=== PATIENT | female | born 1955 | race Caucasian/White ===

== ENCOUNTER 2017-01-15 13:29 | Emergency (ER) | payer MEDICARE, MEDICAID ==
--- NOTE | 2017-01-15 14:16 | ER Document Report ---
ED General - General Chief Complaint: Leg Pain Stated Complaint: LEFT LEG PAIN Time Seen by Provider: 01/15/17 14:16 Mode of Arrival: Ambulatory Information source: Patient Notes: 61-year-old female history of factor V Leiden deficiency who is on the blood thinner that she is unsure of presents with complaints of left calf and thigh pain. Patient notes symptoms have been ongoing for 4 days denies any fevers or chills denies any nausea vomiting shortness of breath Patient notes history of 2 pulmonary emboli TRAVEL OUTSIDE OF THE [place] IN LAST 30 DAYS: No - HPI Onset: Last week Onset/Duration: Persistent Quality of pain: Achy Severity: Mild Pain Level: 1 Associated symptoms: Other - Leg pain Exacerbated by: Movement Relieved by: Denies Similar symptoms previously: No Recently seen / treated by doctor: No - Related Data Allergies/Adverse Reactions: aspirin Allergy (Verified 01/15/17 14:29) Home Medications: Current Home Medications Acetaminophen with Codeine [Tylenol #3 Tablet] 1 each PO TID 01/15/17 [History] Levocetirizine Dihydrochloride [Xyzal] 5 mg PO DAILY 01/15/17 [History] Sertraline HCl [Zoloft 50 mg Tablet] 50 mg PO DAILY 01/15/17 [History] Past Medical History - Social History Smoking Status: Never Smoker Cigarette use (# per day): No Chew tobacco use (# tins/day): No Smoking Education Provided: No Family History: Arthritis, CAD, Hyperlipidemia, Hypertension, Malignancy Patient has suicidal ideation: No - Past Medical History Cardiac Medical History: Reports: Hx Heart Attack, Hx Hypertension Pulmonary Medical History: Denies: Hx Tuberculosis Endocrine Medical History: Reports: Hx Diabetes Mellitus Type 2 Renal/ Medical History: Denies: Hx Peritoneal Dialysis GI Medical History: Reports: Hx Gastroesophageal Reflux Disease Musculoskeltal Medical History: Reports Hx Arthritis Psychiatric Medical History: Reports: Hx Depression Past Surgical History: Reports: Hx Section - 2, Hx Oral Surgery, Hx Tonsillectomy - Immunizations Immunizations up to date: Yes Hx Diphtheria, Pertussis, Tetanus Vaccination: Yes Review of Systems - Review of Systems Notes: REVIEW OF SYSTEMS: CONSTITUTIONAL : Denies fever, chills, or sweats. Denies recent illness. EENT: Denies eye, ear, throat, or mouth pain or symptoms. Denies nasal or sinus congestion or discharge. Denies throat, tongue, or mouth swelling or difficulty swallowing. CARDIOVASCULAR: Denies chest pain. Denies palpitations or racing or irregular heart beat. Denies ankle edema. RESPIRATORY: Denies cough, cold, or chest congestion. Denies shortness of breath, difficulty breathing, or wheezing. GASTROINTESTINAL: Denies abdominal pain or distention. Denies nausea, vomiting , or diarrhea. Denies blood in vomitus, stools, or per rectum. Denies black, tarry stools. Denies constipation. GENITOURINARY: Denies difficulty urinating, painful urination, burning, frequency, blood in urine, or discharge. FEMALE GENITOURINARY: Denies vaginal bleeding, heavy or abnormal periods, irregular periods. Denies vaginal discharge or odor. MUSCULOSKELETAL: Admits to left leg pain SKIN: Denies rash, lesions or sores. HEMATOLOGIC : Denies easy bruising or bleeding. LYMPHATIC: Denies swollen, enlarged glands. NEUROLOGICAL: Denies confusion or altered mental status. Denies passing out or loss of consciousness. Denies dizziness or lightheadedness. Denies headache. Denies weakness or paralysis or loss of use of either side. Denies problems with gait or speech. Denies sensory loss, numbness, or tingling. Denies seizures. PSYCHIATRIC: Denies anxiety or stress. Denies depression, suicidal ideation, or homicidal ideation. ALL OTHER SYSTEMS REVIEWED AND NEGATIVE. PHYSICAL EXAMINATION: GENERAL: Well-appearing, well-nourished and in no acute distress. HEAD: Atraumatic, normocephalic. EYES: Pupils equal round and reactive to light, extraocular movements intact, conjunctiva are normal. ENT: Nares patent, oropharynx clear without exudates. Moist mucous membranes. NECK: Normal range of motion, supple without lymphadenopathy LUNGS: Breath sounds clear to auscultation bilaterally and equal. No wheezes rales or rhonchi. HEART: Regular rate and rhythm without murmurs ABDOMEN: Soft, nontender, nondistended abdomen. No guarding, no rebound. No masses appreciated. Female : deferred Musculoskeletal: Normal range of motion, no pitting or edema. No cyanosis. NEUROLOGICAL: Cranial nerves grossly intact. Normal speech, normal gait. Normal sensory, motor exams PSYCH: Normal mood, normal affect. SKIN: Warm, Dry, normal turgor, no rashes or lesions noted. Dictation was performed using [employer] voice recognition software Physical Exam - Vital signs Vitals: Temp Pulse Resp BP Pulse Ox 98.6 F 64 15 152/80 H 96 01/15/17 13:51 01/15/17 13:51 01/15/17 13:51 01/15/17 13:51 01/15/17 13:51 Course - Re-evaluation Re-evalutation: 01/15/17 14:38 Ultrasound pending at this time to rule out DVT 01/15/17 15:49 Doppler was negative, patient will be pain treated for pain but given very strict return precautions regarding possible evolving DVT After performing a Medical Screening Examination, I estimate there is LOW risk for INTRACRANIAL HEMORRHAGE, UNSTABLE SPINE FRACTURE, CENTRAL CORD SYNDROME, CAUDA EQUINA, THORACIC AORTIC DISSECTION, PNEUMOTHORAX, PERFORATED BOWEL, RUPTURED ABDOMINAL AORTIC ANEURYSM, ACUTE TENDON RUPTURE, COMPARTMENT SYNDROME, or OPEN FRACTURE, thus I consider the discharge disposition reasonable. Also, there is no evidence or peritonitis, sepsis, or toxicity. I have reevaluated this patient multiple times and no significant life threatening changes are noted. The patient and I have discussed the diagnosis and risks, and we agree with discharging home to follow-up with their primary doctor with the understanding that symptoms and presentations can change. We also discussed returning to the Emergency Department immediately if new or worsening symptoms occur. We have discussed the symptoms which are most concerning (e.g., bloody stool, fever, changing or worsening pain, vomiting) that necessitate immediate return. - Vital Signs Vital signs: Temp Pulse Resp BP Pulse Ox 98.6 F 64 15 152/80 H 96 01/15/17 13:51 01/15/17 13:51 01/15/17 13:51 01/15/17 13:51 01/15/17 13:51 - Laboratory Result Diagrams: 01/15/17 14:20 01/15/17 14:20 Laboratory results interpreted by me: 01/15/17 01/15/17 14:20 14:20 PT 25.2 H Chloride 108 H BUN 21 H Est GFR (Non-Af Amer) 59 L - Diagnostic Test Radiology reviewed: Image reviewed, Reports reviewed - no dvt Discharge - Discharge Clinical Impression: Left leg pain, Factor V deficiency Condition: Stable Disposition: HOME, SELF-CARE Instructions: Leg Cramps ([facility]), Leg Pain Nonspecific ([facility]) Prescriptions: Hydrocodone/Acetaminophen [[place] 5-325 mg Tablet] 1 tab PO Q6 #10 tablet Referrals: TJ EVERETT MD [Primary Care Provider] - Follow up tomorrow
[2017-01-15] MEDS ORDERED: OXYCODONE-ACETAMINOPHEN 5-325 MG TABLET PO ONE (14:17)
[2017-01-15 14:37] LABS: ABSOLUTE EOSINOPHILS # (AUTO) 0.1 10^3/uL (0.0-0.6); ABSOLUTE LYMPHOCYTES (AUTO) 1.8 10^3/uL (0.5-4.7); ABSOLUTE MONOCYTES (AUTO) 0.5 10^3/uL (0.1-1.4); ABSOLUTE NEUT (AUTO) 2.6 10^3/uL (1.7-8.2); BASOPHILS % (AUTO) 0.8 % (0-2); EOSINOPHILS % (AUTO) 1.4 % (0-6); HEMATOCRIT 37.7 % (36.0-47.0); HEMOGLOBIN 13.2 g/dL (12.0-15.5); HGB HCT DIFFERENCE 1.9; MEAN CORPUSCULAR HEMOGLOBIN 32.8 pg (27.0-33.4); MEAN CORPUSCULAR HGB CONC 35.2 g/dL (32.0-36.0); MEAN CORPUSCULAR VOLUME 93 fl (80-97); MONOCYTES % (AUTO) 9.9 % (3-13); RED BLOOD COUNT 4.04 10^6/uL (3.72-5.28); RED CELL DISTRIBUTION WIDTH 13.2 % (11.5-14.0); SEGMENTED NEUTROPHILS % (AUTO) 52.9 % (42-78)
[2017-01-15 14:46] LABS: PROTHROMBIN TIME 25.2 SEC (11.4-15.4)
[2017-01-15 14:51] LABS: ALANINE AMINOTRANSFERASE 41 U/L (9-52); ALBUMIN 3.9 g/dL (3.5-5.0); ALKALINE PHOSPHATASE 90 U/L (38-126); ANION GAP 9 (5-19); ASPARTATE AMINO TRANSFERASE 24 U/L (14-36); BILIRUBIN,DIRECT 0.2 mg/dL (0.0-0.4); BILIRUBIN,TOTAL 0.7 mg/dL (0.2-1.3); BLOOD UREA NITROGEN 21 mg/dL (7-20); CALCIUM 8.9 mg/dL (8.4-10.2); CARBON DIOXIDE 25 mmol/L (22-30); CHLORIDE 108 mmol/L (98-107); CREATININE RESULT 0.96 mg/dL (0.52-1.25); GLUCOSE 91 mg/dL (75-110); POTASSIUM 4.1 mmol/L (3.6-5.0); SODIUM 142.3 mmol/L (137-145); TOTAL PROTEIN 7.1 g/dL (6.3-8.2)
--- NOTE | 2017-01-15 16:08 | RADIOLOGY REPORT (SQ) ---
EXAM DESCRIPTION: VENOUS UNILATERAL LOWER COMPLETED DATE/TIME: 01/15/2017 3:45 pm REASON FOR STUDY: left lower extremity pain COMPARISON: 04/18/2015 TECHNIQUE: Dynamic and static hernandez scale and color images acquired of the left leg venous system. Se lected spectral images acquired with additional compression and augmentation maneuvers. The contralat eral common femoral vein and saphenofemoral junction were also imaged. Images stored on PACS. LIMITATIONS: None. FINDINGS: LEFT COMMON FEMORAL: Normal phasicity, compression and augmentation. No visualized echogenic material on g ray scale. No defects on color images. FEMORAL: Normal compression and augmentation. No visualized echogenic material on hernandez scale. No defe cts on color images. POPLITEAL: Normal compression, augmentation. No visualized echogenic material on hernandez scale. No defec ts on color images. CALF VESSELS: Normal compression, augmentation. No visualized echogenic material on hernandez scale. No de fects on color images. GSV and SSV: Normal compression, augmentation. No visualized echogenic material on hernandez scale. No def ects on color images. ANY DEEP VENOUS INSUFFICIENCY: Not evaluated. ANY EVIDENCE OF POPLITEAL CYST: No. OTHER: No other significant finding. RIGHT COMMON FEMORAL VEIN AND SAPHENOFEMORAL JUNCTION: Normal phasicity, compression and augmentation. No visualized echogenic material on hernandez scale. No de fects on color images. IMPRESSION: NO EVIDENCE OF DVT OR SVT IN THE LEFT LEG. TECHNICAL DOCUMENTATION: JOB ID: [id number] [employer]- All Rights Reserved
[2017-01-15 16:14] VITALS: BP 143/75
== END 2017-01-15 16:13 | disposition home or self-care (01) ==
LOC: ER 13:29
DX: M79.605 Pain in left leg (principal); D68.51 Activated protein C resistance; Z79.899 Other long term (current) drug therapy
CPT/HCPCS: 99284; 36415; 85025; 85610; 80053; 93971; A9270

== ENCOUNTER → 2017-10-25 | Outpatient (CLI) | payer MEDICARE, MEDICAID ==
--- NOTE | 2017-10-25 16:00 | RADIOLOGY REPORT (SQ) ---
EXAM DESCRIPTION: KNEE RIGHT 2 VIEWS COMPLETED DATE/TIME: 10/25/2017 3:27 pm REASON FOR STUDY: PAIN IN RIGHT KNEE M25.561 PAIN IN RIGHT KNEE COMPARISON: None. NUMBER OF VIEWS: Two views. TECHNIQUE: AP and lateral radiographic images acquired of the right knee. LIMITATIONS: None. FINDINGS: MINERALIZATION: Normal. BONES: No acute fracture or dislocation. No worrisome bone lesions. JOINT: No effusion. SOFT TISSUES: No soft tissue swelling. No radio-opaque foreign body. OTHER: No other significant finding. IMPRESSION: NEGATIVE STUDY OF THE RIGHT KNEE. NO RADIOGRAPHIC EVIDENCE OF ACUTE INJURY. TECHNICAL DOCUMENTATION: JOB ID: [id number] [employer]- All Rights Reserved Reading location - IP/workstation name: [email or web address]
== END ==
LOC: OD 15:10
PROVIDERS: ATTEND Internal Medicine
DX: M25.561 Pain in right knee (principal)

== ENCOUNTER 2018-09-17 16:01 | Emergency (ER) | payer MEDICARE, MEDICAID ==
[2018-09-17 16:08] VITALS: BP 119/79
[2018-09-17] MEDS ORDERED: ONDANSETRON 4 MG TAB.RAPDIS PO ONE (16:55)
[2018-09-17] MEDS ORDERED: METOCLOPRAMIDE HCL INJ/PF 10 MG/2 ML SDV IV ONE (16:59)
--- NOTE | 2018-09-17 17:00 | ER Document Report ---
ED Medical Screen (RME) - General Chief Complaint: Abdominal Pain Stated Complaint: VOMITING Time Seen by Provider: 09/17/18 16:54 Primary Care Provider: EVE PACE MD [Primary Care Provider] - Follow up as needed TRAVEL OUTSIDE OF THE [place] IN LAST 30 DAYS: No - HPI Notes: 09/17/18 16:59 Patient is a 63-year-old female who presents emergency department complaining of nausea, vomiting, diarrhea, and mid/upper abdominal pain that has been intermittent that began yesterday. Patient states that she was throwing up all day yesterday and all last night. Her last episode of emesis was this morning, and patient has not been able to eat or drink anything today. Patient states that she took a sip of some fluids before she came in, but felt like he was going to come back up so she has not taken anything else p.o. Patient is requesting fluids and nausea medicine that is not Zofran. Denies LYNN, fever, neck pain, URI, CP, SOB, current Abd pain, or rash. I have treated and performed a rapid initial assessment of this patient. A comprehensive ED assessment and evaluation of the patient, analysis of test results and completion of medical decision making process will be conducted by additional ED providers. PHYSICAL EXAMINATION: GENERAL: Well-appearing, well-nourished and in no acute distress. A&Ox4. Answers questions appropriately. LUNGS: Breath sounds clear to auscultation bilaterally and equal. No wheezes rales or rhonchi. HEART: Regular rate and rhythm without murmurs, rubs, gallops. ABDOMEN: Soft, nondistended abdomen. No guarding, no rebound. Normal bowel sounds present. No CVA tenderness bilaterally. Grossly nontender at this time (cannot elicit thorough abd exam w/o table, however). Extremities: No cyanosis, clubbing, or edema b/l. NEUROLOGICAL: Normal speech, normal gait. PSYCH: Normal mood, normal affect. - Related Data Allergies/Adverse Reactions: aspirin Allergy (Verified 02/11/17 12:39) Past Medical History - Past Medical History Cardiac Medical History: Reports: Hx Heart Attack, Hx Hypertension Pulmonary Medical History: Denies: Hx Tuberculosis Endocrine Medical History: Reports: Hx Diabetes Mellitus Type 2 Renal/ Medical History: Denies: Hx Peritoneal Dialysis GI Medical History: Reports: Hx Gastroesophageal Reflux Disease Musculoskeltal Medical History: Reports Hx Arthritis Psychiatric Medical History: Reports: Hx Depression Past Surgical History: Reports: Hx Section - 2, Hx Oral Surgery, Hx Tonsillectomy - Immunizations Immunizations up to date: Yes Hx Diphtheria, Pertussis, Tetanus Vaccination: Yes Physical Exam - Vital signs Vitals: Temp Pulse Resp BP Pulse Ox 97.8 F 92 16 119/79 93 09/17/18 16:07 09/17/18 16:07 09/17/18 16:07 09/17/18 16:07 09/17/18 16:07 Course - Vital Signs Vital signs: Temp Pulse Resp BP Pulse Ox 97.8 F 92 16 119/79 93 09/17/18 16:07 09/17/18 16:07 09/17/18 16:07 09/17/18 16:07 09/17/18 16:07 Doctor's Discharge - Discharge Referrals: EVE PACE MD [Primary Care Provider] - Follow up as needed
[2018-09-17 17:43] LABS: APPEARANCE,URINE CLOUDY; BILIRUBIN,URINE NEGATIVE (NEGATIVE); GLUCOSE, URINE NEGATIVE (NEGATIVE); KETONES,URINE NEGATIVE (NEGATIVE); LEUKOCYTE ESTERASE,URINE LARGE (NEGATIVE); NITRITE,URINE NEGATIVE (NEGATIVE); PROTEIN,URINE NEGATIVE (NEGATIVE); URINE SPECIFIC GRAVITY 1.027
[2018-09-17 17:46] LABS: COLOR,URINE DARK YELLOW
== END 2018-09-17 18:17 | disposition left against medical advice (07) ==
LOC: ER 16:01
DX: Z53.21 Procedure and treatment not carried out due to patient leaving prior to being seen by health care provider (principal); R11.2 Nausea with vomiting, unspecified; R10.9 Unspecified abdominal pain; R19.7 Diarrhea, unspecified; R10.10 Upper abdominal pain, unspecified; I10 Essential (primary) hypertension; E11.9 Type 2 diabetes mellitus without complications
CPT/HCPCS: 99281; 96374; 87086; 87088; 81001; J2765

== ENCOUNTER 2018-10-03 17:24 | Observation (INO) | payer MEDICARE, MEDICAID ==
--- NOTE | 2018-10-03 18:52 | ER Document Report ---
ED Medical Screen (RME) - General Chief Complaint: Chest Pain Stated Complaint: CHEST PAIN,LEFT ARM PAIN/DIRECT ADMIT Time Seen by Provider: 10/03/18 18:42 Primary Care Provider: EVE PACE MD [Primary Care Provider] - Follow up as needed Mode of Arrival: Ambulatory Information source: Patient TRAVEL OUTSIDE OF THE [place] IN LAST 30 DAYS: No - HPI Patient complains to provider of: LESVIA Notes: 10/03/18 18:48 Patient here with complaints of chest pain intermittently for the last month. The patient was seen by her primary care doctor and was sent to the hospital for direct admission. There are no beds available, therefore she has checked in the ER. She complains of intermittent chest pain. Left shoulder pain. According to his orders, he has ordered a chest pain work-up as well as an MRI of the left shoulder. Exam Nontoxic, no distress, lungs clear and equal, heart sounds normal, tenderness to left shoulder with slight limited range of motion. Plan CBC, CMP, troponin, CPK, CK-MB, EKG, chest x-ray, MRI of the left shoulder. An initial examination was made on the patient as part of the triage process, and it was determined a more comprehensive evaluation was necessary. Initial labs were ordered and patient was transferred to another provider in the ED who assumed care and finished evaluation and plan. - Related Data Allergies/Adverse Reactions: aspirin Allergy (Verified 02/11/17 12:39) Past Medical History - Past Medical History Cardiac Medical History: Reports: Hx Heart Attack, Hx Hypertension Pulmonary Medical History: Denies: Hx Tuberculosis Endocrine Medical History: Reports: Hx Diabetes Mellitus Type 2 Renal/ Medical History: Denies: Hx Peritoneal Dialysis GI Medical History: Reports: Hx Gastroesophageal Reflux Disease Musculoskeltal Medical History: Reports Hx Arthritis Psychiatric Medical History: Reports: Hx Depression Past Surgical History: Reports: Hx Section - 2, Hx Oral Surgery, Hx Tonsillectomy - Immunizations Immunizations up to date: Yes Hx Diphtheria, Pertussis, Tetanus Vaccination: Yes Physical Exam - Vital signs Vitals: Temp Pulse Resp BP Pulse Ox 97.6 F 57 L 16 137/66 H 99 10/03/18 17:41 10/03/18 17:41 10/03/18 17:41 10/03/18 17:41 10/03/18 17:41 Course - Vital Signs Vital signs: Temp Pulse Resp BP Pulse Ox 97.6 F 57 L 16 137/66 H 99 10/03/18 17:41 10/03/18 17:41 10/03/18 17:41 10/03/18 17:41 10/03/18 17:41 Doctor's Discharge - Discharge Clinical Impression: Chest pain Qualifiers: Chest pain type: unspecified Qualified Code(s): R07.9 - Chest pain, unspecified Left shoulder pain Qualifiers: Chronicity: chronic Qualified Code(s): M25.512 - Pain in left shoulder; G89.29 - Other chronic pain Condition: Stable Disposition: ADMITTED OBSERVATION Referrals: EVE PACE MD [Primary Care Provider] - Follow up as needed
--- NOTE | 2018-10-03 19:17 | RADIOLOGY REPORT (SQ) ---
EXAM DESCRIPTION: CHEST SINGLE VIEW COMPLETED DATE/TIME: 10/03/2018 7:09 pm REASON FOR STUDY: CP COMPARISON: Two-view chest 01/31/2016 EXAM PARAMETERS: NUMBER OF VIEWS: One view. TECHNIQUE: Single frontal radiographic view of the chest acquired. RADIATION DOSE: NA LIMITATIONS: None. FINDINGS: LUNGS AND PLEURA: No opacities, masses or pneumothorax. No pleural effusion. MEDIASTINUM AND HILAR STRUCTURES: No masses. Contour normal. HEART AND VASCULAR STRUCTURES: Heart normal in size. Normal vasculature. BONES: No acute findings. HARDWARE: None in the chest. OTHER: No other significant finding. IMPRESSION: NO ACUTE RADIOGRAPHIC FINDING IN THE CHEST. TECHNICAL DOCUMENTATION: JOB ID: [id number] [employer]- All Rights Reserved Reading location - IP/workstation name: [email or web address]
--- NOTE | 2018-10-03 19:18 | RADIOLOGY REPORT (SQ) ---
EXAM DESCRIPTION: SHOULDER LEFT 2 OR MORE VIEWS COMPLETED DATE/TIME: 10/03/2018 7:09 pm REASON FOR STUDY: LEFT SHOULER PAIN COMPARISON: None. NUMBER OF VIEWS: Three views. TECHNIQUE: Internal rotation, external rotation, and Y view images acquired of the left shoulder. LIMITATIONS: None. FINDINGS: MINERALIZATION: Normal. BONES: No acute fracture or dislocation. No worrisome bone lesions. JOINTS: No dislocation. VISUALIZED LUNGS AND RIBS: No pneumothorax. No rib fracture. Cardiomegaly SOFT TISSUES: No radiopaque foreign body. OTHER: No other significant finding. IMPRESSION: No acute fracture or malalignment TECHNICAL DOCUMENTATION: JOB ID: [id number] [employer]- All Rights Reserved Reading location - IP/workstation name: [email or web address]
[2018-10-03 19:34] LABS: ABSOLUTE BASOPHILS # (AUTO) 0.1 10^3/uL (0.0-0.2); ABSOLUTE EOSINOPHILS # (AUTO) 0.1 10^3/uL (0.0-0.6); ABSOLUTE LYMPHOCYTES (AUTO) 2.2 10^3/uL (0.5-4.7); ABSOLUTE MONOCYTES (AUTO) 0.5 10^3/uL (0.1-1.4); ABSOLUTE NEUT (AUTO) 2.7 10^3/uL (1.7-8.2); EOSINOPHILS % (AUTO) 1.2 % (0-6); HEMATOCRIT 40.9 % (36.0-47.0); HEMOGLOBIN 14.3 g/dL (12.0-15.5); LYMPHOCYTES % (AUTO) 40.1 % (13-45); MEAN CORPUSCULAR HEMOGLOBIN 32.5 pg (27.0-33.4); MEAN CORPUSCULAR HGB CONC 34.9 g/dL (32.0-36.0); MEAN CORPUSCULAR VOLUME 93 fl (80-97); MONOCYTES % (AUTO) 8.3 % (3-13); PLATELET COUNT 199 10^3/uL (150-450); RED CELL DISTRIBUTION WIDTH 13.1 % (11.5-14.0); SEGMENTED NEUTROPHILS % (AUTO) 49.4 % (42-78); TOTAL CELLS COUNTED % (AUTO) 100 %; WHITE BLOOD COUNT 5.5 10^3/uL (4.0-10.5)
[2018-10-03 19:54] LABS: ALANINE AMINOTRANSFERASE 25 U/L (9-52); ALBUMIN 4.1 g/dL (3.5-5.0); ALKALINE PHOSPHATASE 71 U/L (38-126); ANION GAP 8 (5-19); ASPARTATE AMINO TRANSFERASE 20 U/L (14-36); BILIRUBIN,DIRECT 0.3 mg/dL (0.0-0.4); BILIRUBIN,TOTAL 0.7 mg/dL (0.2-1.3); BLOOD UREA NITROGEN 20 mg/dL (7-20); CALCIUM 9.8 mg/dL (8.4-10.2); CARBON DIOXIDE 27 mmol/L (22-30); CHLORIDE 108 mmol/L (98-107); CREATINE KINASE 56 U/L (30-135); GLUCOSE 103 mg/dL (75-110); SODIUM 142.5 mmol/L (137-145); TOTAL PROTEIN 7.5 g/dL (6.3-8.2)
[2018-10-03 20:07] LABS: TROPONIN I < 0.012 ng/mL
--- NOTE | 2018-10-03 20:36 | ER Document Report ---
ED General - General Chief Complaint: Chest Pain Stated Complaint: CHEST PAIN,LEFT ARM PAIN/DIRECT ADMIT Time Seen by Provider: 10/03/18 18:42 Mode of Arrival: Ambulatory Notes: Patient is a 63-year old female with a past medical history of coronary artery disease, hypertension, presents as a direct admission from Dr. Chan but was office. Ended up coming into the emergency department because there are no beds available upstairs. Dr. Villa apparently wanted a cardiac workup as well as an MRI of the shoulder. The patient reports that for the past several days she has had a throbbing, severe, constant pain to her left shoulder worsened by any attempt at moving the shoulder. She states particularly raising the shoulder above the level of 90 degrees is excruciating and unmanageable. She has not tried nothing to improve her symptoms. No history of similar injury or pain in the past. She has not had any associated chest discomfort but states Dr. Villa did an EKG did today in this office and was concerned about some changes and referred her to the hospital for cardiac rule out. She denies any shortness of breath, nausea, vomiting or syncope. TRAVEL OUTSIDE OF THE [place] IN LAST 30 DAYS: No - Related Data Allergies/Adverse Reactions: aspirin Allergy (Verified 02/11/17 12:39) Past Medical History - General Information source: Patient - Social History Smoking Status: Never Smoker Frequency of alcohol use: None Drug Abuse: None Family History: Arthritis, CAD, Hyperlipidemia, Hypertension, Malignancy Patient has suicidal ideation: No Patient has homicidal ideation: No - Past Medical History Cardiac Medical History: Reports: Hx Heart Attack, Hx Hypertension Pulmonary Medical History: Denies: Hx Tuberculosis Endocrine Medical History: Reports: Hx Diabetes Mellitus Type 2 Renal/ Medical History: Denies: Hx Peritoneal Dialysis GI Medical History: Reports: Hx Gastroesophageal Reflux Disease Musculoskeletal Medical History: Reports Hx Arthritis Psychiatric Medical History: Reports: Hx Depression Past Surgical History: Reports: Hx Section - 2, Hx Oral Surgery, Hx Tonsillectomy - Immunizations Immunizations up to date: Yes Hx Diphtheria, Pertussis, Tetanus Vaccination: Yes Review of Systems - Review of Systems Notes: Constitutional: Negative for fever. HENT: Negative for sore throat. Eyes: Negative for visual changes. Cardiovascular: Negative for chest pain. Respiratory: Negative for shortness of breath. Gastrointestinal: Negative for abdominal pain, vomiting or diarrhea. Genitourinary: Negative for dysuria. Musculoskeletal: Positive for left shoulder pain Skin: Negative for rash. Neurological: Negative for headaches, weakness or numbness. 10 point ROS negative except as marked above and in HPI. Physical Exam - Vital signs Vitals: Temp Pulse Resp BP Pulse Ox 97.6 F 57 L 16 137/66 H 99 10/03/18 17:41 10/03/18 17:41 10/03/18 17:41 10/03/18 17:41 10/03/18 17:41 Interpretation: Bradycardic Notes: PHYSICAL EXAMINATION: GENERAL: Well-appearing, well-nourished and in no acute distress. HEAD: Atraumatic, normocephalic. EYES: Pupils equal round and reactive to light, extraocular movements intact, sclera anicteric, conjunctiva are normal. ENT: nares patent, oropharynx clear without exudates. Moist mucous membranes. NECK: Normal range of motion, supple without lymphadenopathy LUNGS: Breath sounds clear to auscultation bilaterally and equal. No wheezes rales or rhonchi. HEART: Regular rate and rhythm without murmurs ABDOMEN: Soft, nontender, normoactive bowel sounds. No guarding, no rebound. No masses appreciated. EXTREMITIES: Patient is unable to range her left shoulder above the level of 90 degrees, no obvious swelling or deformity to the left shoulder. No pitting or edema. No cyanosis. NEUROLOGICAL: No focal neurological deficits. Moves all extremities spontaneously and on command. PSYCH: Normal mood, normal affect. SKIN: Warm, Dry, normal turgor, no rashes or lesions noted. Course - Re-evaluation Re-evalutation: 10/03/18 20:34 Patient presents with left shoulder pain that appears to be very muscular skeletal in origin likely related to the rotator cuff itself. Patient is unable to raise her left arm past 90 degrees secondary to exquisite pain but is without any RMU motor or sensory distribution deficits. The patient has had on and off chest pain and her primary care physician was concerned about some changes in her EKG relative to previous and thus referred her for direct admission. Unfortunately there is no beds available in the hospital. Patient has been ordered for medical observation and telemetry and this order has been placed. Here her troponin is negative, EKG without ischemic changes. She is otherwise well in appearance and in no overt distress. - Vital Signs Vital signs: Temp Pulse Resp BP Pulse Ox 97.6 F 57 L 18 127/90 H 96 10/03/18 17:41 10/03/18 17:41 10/03/18 20:01 10/03/18 20:01 10/03/18 20:01 - Laboratory Result Diagrams: 10/03/18 19:12 10/03/18 19:12 Laboratory results interpreted by me: 10/03/18 19:12 Chloride 108 H - Diagnostic Test Radiology reviewed: Image reviewed, Reports reviewed Radiology results interpreted by me: 10/03/18 20:35 Left shoulder pain: No acute fracture or dislocation Chest x-ray: No acute infiltrate or pneumothorax - EKG Interpretation by Me Additional EKG results interpreted by me: 10/03/18 20:35 Sinus bradycardia, rate 53. No ST elevations or depressions. T wave inversions in the leads V2, V3, and lead III. These are unchanged from previous EKGs in the emergency department. Discharge - Discharge Clinical Impression: Chest pain, rule out acute myocardial infarction Left shoulder pain Qualifiers: Chronicity: chronic Qualified Code(s): M25.512 - Pain in left shoulder Chest pain Qualifiers: Chest pain type: unspecified Qualified Code(s): R07.9 - Chest pain, unspecified Condition: Fair Disposition: ADMITTED OBSERVATION Admitting Provider: [facility] Unit Admitted: Telemetry
[2018-10-03] MEDS ORDERED: ACETAMINOPHEN WITH CODEINE #3 TABLET PO PRN (22:44)
[2018-10-03] MEDS ORDERED: (PENDING PHARMACY ID) (Vortioxetine Hydrobromide [Trintellix] 20 MG) PO SCH (22:45)
[2018-10-03] MEDS ORDERED: (PENDING PHARMACY ID) (Lisinopril/Hydrochlorothiazide [Lisinopril-Hctz 20-12.5 Mg Tab] 1 E PO SCH (22:45)
[2018-10-03] MEDS ORDERED: GABAPENTIN 300 MG CAPSULE PO ONE (23:30)
[2018-10-03] MEDS ORDERED: MONTELUKAST SODIUM 10 MG TABLET PO ONE (23:30)
[2018-10-03 23:35] LABS: CREATINE KINASE MB 0.25 ng/mL (<4.55)
[2018-10-03 23:39] LABS: TROPONIN I < 0.012 ng/mL
[2018-10-04] MEDS ORDERED: PANTOPRAZOLE SODIUM 40 MG TABLET.DR PO SCH (06:00)
[2018-10-04] MEDS: GABAPENTIN 300 MG CAPSULE PO SCH ×2 (06:04→14:30)
--- NOTE | 2018-10-04 07:49 | EKG REPORT ---
SEVERITY:- ABNORMAL ECG - SINUS RHYTHM NONSPECIFIC T ABNORMALITIES, INFERIOR AND ANTERIOR LEADS. : Confirmed by: Rip Stockton MD 04-Oct-2018 07:49:12
[2018-10-04 07:50] LABS: CREATINE KINASE MB < 0.22 ng/mL (<4.55); TROPONIN I < 0.012 ng/mL
[2018-10-04] MEDS ORDERED: RIVAROXABAN 10 MG TABLET PO SCH (10:00)
[2018-10-04] MEDS ORDERED: HYDROCHLOROTHIAZIDE 12.5 MG TABLET PO SCH (10:00)
[2018-10-04] MEDS ORDERED: LISINOPRIL 10 MG TABLET PO SCH (10:00)
[2018-10-04] MEDS ORDERED: LORAZEPAM INJ 2 MG/1 ML VIAL IV PRN (10:04)
--- NOTE | 2018-10-04 11:51 | RADIOLOGY REPORT (SQ) ---
EXAM DESCRIPTION: MRI LT UPPER JOINT WITHOUT COMPLETED DATE/TIME: 10/04/2018 11:22 am REASON FOR STUDY: SHOULDER PAIN COMPARISON: None. TECHNIQUE: Left shoulder images acquired and stored on PACS. Multiplanar imaging to include fat sens itive sequences such as T1, water sensitive sequences such as FST2/STIR, cartilage sensitive sequence s such as FSPD/gradient-echo sequences. LIMITATIONS: Morbidly obese patient, limited scan FINDINGS: BONE MARROW AND CORTEX: Small subcortical cyst in the left humeral head greater tuberosity coronal image 9. No marrow signal abnormalities worrisome for occult fracture or aggressive marrow replacement process JOINT OR BURSAL EFFUSION: Small amount of fluid in the subacromial/subdeltoid bursa. Physiologic gle nohumeral joint fluid GLENO-HUMERAL ARTICULATION: Normal articulation. No subluxation. No cystic change. No osteophytes or cartilage loss. ACROMION AND AC JOINT: Type 2 acromion with bulky AC joint hypertrophy mildly narrowing the subacrom ial space. Associated fluid in the subacromial/subdeltoid bursa. ROTATOR CUFF AND INTERVAL: Tendinopathy with small full-thickness tear anterior edge distal supraspin atus tendon, best shown on sagittal image 5 and coronal images 8-11. Thickening and high signal is s een elsewhere throughout the supraspinatus tendon from tendinopathy. Infraspinatus, subscapularis ar e intact. No rotator interval tear. No rotator interval thickening to suggest adhesive capsulitis. LABRUM AND BICEPS LABRAL COMPLEX: Intra-articular long head biceps tendon is thickened and high in signal. Non arthrogram images of the glenoid labrum are grossly normal REMAINDER OF LABRUM AND IGHL : No gross tear or paralabral cyst formation. Labral evaluation is less than optimal without joint distention. No thickening of IGHL to suggest adhesive capsulitis. PERIARTICULAR AND ADJACENT SOFT TISSUES: No masses or abnormal nodes. OTHER: No other significant finding. IMPRESSION: Tendinopathy with partial thickness tear anterior edge supraspinatus tendon Intra-articular long head biceps tendinopathy TECHNICAL DOCUMENTATION: JOB ID: [id number] [employer]- All Rights Reserved Reading location - IP/workstation name: [email or web address]
[2018-10-04 15:32] LABS: CREATINE KINASE MB < 0.22 ng/mL (<4.55); TROPONIN I < 0.012 ng/mL
[2018-10-04 16:14] VITALS: BP 137/66
--- NOTE | 2018-10-04 17:12 | PDOC H&P ---
History of Present Illness Admission Date/PCP: 10/03/18 20:44 TJ EVERETT MD History of Present Illness: JANIE KING is a 63 year old female, She came to the office for evaluation of left shoulder pain, chest pain, in the office she was evaluated on examination of the left shoulder, there was limitation of range of motion of the left shoulder suggesting a tear of the rotator cuff. A 12-lead EKG was obtained because of the chest pain, the EKG demonstrated normal sinus rhythm, there was Q wave in lead to be V3 V4 V2 because of the abnormal EKG, patient was admitted to the hospital for further evaluation. The cardiac enzymes were negative for acute MA.The MRI of the left shoulder demonstrated bulky AC joint hypertrophy there is tendinopathy with small fluid thickness tear of the anterior distal supraspinatus tendon Past Medical History Cardiac Medical History: Reports: Hypertension, Pulmonary Embolism Endocrine Medical History: Reports: Obesity GI Medical History: Reports: Gastroesophageal Reflux Disease Musculoskeltal Medical History: Reports: Arthritis Psychiatric Medical History: Reports: Depression - denies depression on admission Past Surgical History Past Surgical History: Reports: Section - 2, Tonsillectomy Social History Smoking Status: Never Smoker Frequency of Alcohol Use: None Hx Recreational Drug Use: No Drugs: None Hx Prescription Drug Abuse: No Family History Family History: Arthritis, CAD, Hyperlipidemia, Hypertension, Malignancy Parental Family History Reviewed: Yes Children Family History Reviewed: Yes Sibling(s) Family History Reviewed.: Yes Medication/Allergy Home Medications: Gabapentin [Neurontin 300 mg Capsule] 300 mg PO Q8 10/03/18 Lisinopril/Hydrochlorothiazide [Lisinopril-Hctz 20-12.5 mg Tab] 1 each PO DAILY 10/03/18 Montelukast Sodium [Singulair 10 mg Tablet] 10 mg PO QHS 10/03/18 Olopatadine HCl [Pataday] 1 drop OU BIDP PRN 10/03/18 Omeprazole 40 mg PO DAILY 10/03/18 Rivaroxaban [Xarelto 10 mg Tablet] 10 mg PO DAILY 10/03/18 Vortioxetine Hydrobromide [Trintellix] 20 mg PO DAILY 10/03/18 Acetaminophen with Codeine [Acetaminophen-Cod #4 Tablet] 1 each PO QID #120 tablet 10/04/18 Allergies/Adverse Reactions: aspirin Allergy (Verified 02/11/17 12:39) Review of Systems Constitutional: ABSENT: chills, fever(s), headache(s), weight gain, weight loss Eyes: ABSENT: visual disturbances Ears: ABSENT: hearing changes Cardiovascular: PRESENT: chest pain. ABSENT: dyspnea on exertion, edema, orthropnea, palpitations Respiratory: ABSENT: cough, hemoptysis Gastrointestinal: ABSENT: abdominal pain, constipation, diarrhea, hematemesis, hematochezia, nausea, vomiting Genitourinary: ABSENT: dysuria, hematuria Musculoskeletal: PRESENT: back pain Integumentary: ABSENT: rash, wounds Neurological: ABSENT: abnormal gait, abnormal speech, confusion, dizziness, focal weakness, syncope Psychiatric: ABSENT: anxiety, depression, homidical ideation, suicidal ideation Endocrine: ABSENT: cold intolerance, heat intolerance, menstrual abnormalities, polydipsia, polyuria Hematologic/Lymphatic: ABSENT: easy bleeding, easy bruising, lymphadenopathy Physical Exam Vital Signs: Temp Pulse Resp BP Pulse Ox 97.2 F 76 16 137/66 H 95 10/04/18 16:11 10/04/18 16:11 10/04/18 16:11 10/04/18 16:11 10/04/18 16:11 Intake & Output 10/03/18 10/04/18 10/05/18 06:59 06:59 06:59 Weight 105 kg General appearance: PRESENT: no acute distress Head exam: PRESENT: atraumatic, normocephalic Eye exam: PRESENT: conjunctiva pink, EOMI, PERRLA Ear exam: PRESENT: normal external ear exam Mouth exam: PRESENT: moist, tongue midline Neck exam: PRESENT: full ROM Respiratory exam: PRESENT: clear to auscultation magalis Cardiovascular exam: PRESENT: RRR, +S1, +S2 Vascular exam: PRESENT: normal capillary refill GI/Abdominal exam: PRESENT: normal bowel sounds, soft Rectal exam: PRESENT: deferred Neurological exam: PRESENT: alert, awake, oriented to person, oriented to place, oriented to time, oriented to situation, CN II-XII grossly intact Results Laboratory Results: 10/03/18 19:12 10/03/18 19:12 10/03/18 10/03/18 19:12 19:12 WBC 5.5 RBC 4.40 Hgb 14.3 Hct 40.9 MCV 93 MCH 32.5 MCHC 34.9 RDW 13.1 Plt Count 199 Seg Neutrophils % 49.4 Lymphocytes % 40.1 Monocytes % 8.3 Eosinophils % 1.2 Basophils % 1.0 Absolute Neutrophils 2.7 Absolute Lymphocytes 2.2 Absolute Monocytes 0.5 Absolute Eosinophils 0.1 Absolute Basophils 0.1 Sodium 142.5 Potassium 4.0 Chloride 108 H Carbon Dioxide 27 Anion Gap 8 BUN 20 Creatinine 0.73 Est GFR ( Amer) > 60 Est GFR (Non-Af Amer) > 60 Glucose 103 Calcium 9.8 Total Bilirubin 0.7 AST 20 ALT 25 Alkaline Phosphatase 71 Total Protein 7.5 Albumin 4.1 10/03/18 10/03/18 10/03/18 19:12 19:12 22:50 Creatine Kinase 56 CK-MB (CK-2) 0.30 0.25 Troponin I < 0.012 < 0.012 10/03/18 10/04/18 10/04/18 22:50 06:59 06:59 Creatine Kinase 45 40 CK-MB (CK-2) < 0.22 Troponin I < 0.012 10/04/18 10/04/18 14:36 14:36 Creatine Kinase 45 CK-MB (CK-2) < 0.22 Troponin I < 0.012 Impressions: Chest X-Ray 10/03/18 18:46 IMPRESSION: NO ACUTE RADIOGRAPHIC FINDING IN THE CHEST. Shoulder X-Ray 10/03/18 18:52 IMPRESSION: No acute fracture or malalignment Upper Extremity MRI 10/04/18 00:00 IMPRESSION: Tendinopathy with partial thickness tear anterior edge supraspinatus tendon Intra-articular long head biceps tendinopathy Assessment & Plan - Diagnosis (1) Chest pain Qualifiers: Chest pain type: unspecified Qualified Code(s): R07.9 - Chest pain, unspecified Is this a current diagnosis for this admission?: Yes Plan: Patient was admitted for observation, 3 sets of cardiac enzymes negative for acute MA (2) Tendinopathy of left shoulder Is this a current diagnosis for this admission?: Yes Plan: She has left shoulder tendinopathy
--- NOTE | 2018-10-04 17:15 | PDOC DISCHARGE SUMMARY ---
General - Admit/Disc Date/PCP Admission Date/Primary Care Provider: 10/03/18 20:44 TJ EVERETT MD Discharge Date: 10/04/18 - Discharge Diagnosis (1) Chest pain Is this a current diagnosis for this admission?: Yes (2) Tendinopathy of left shoulder Is this a current diagnosis for this admission?: Yes - Additional Information Discharge Diet: As Tolerated Discharge Activity: Activity As Tolerated Prescriptions: Acetaminophen with Codeine [Acetaminophen-Cod #4 Tablet] 1 each PO QID #120 tablet Home Medications: RX: Gabapentin [Neurontin 300 mg Capsule] 300 mg PO Q8 10/03/18 RX: Lisinopril/Hydrochlorothiazide [Lisinopril-Hctz 20-12.5 mg Tab] 1 each PO DAILY 10/03/18 RX: Montelukast Sodium [Singulair 10 mg Tablet] 10 mg PO QHS 10/03/18 RX: Olopatadine HCl [Pataday] 1 drop OU BIDP PRN 10/03/18 RX: Omeprazole 40 mg PO DAILY 10/03/18 RX: Rivaroxaban [Xarelto 10 mg Tablet] 10 mg PO DAILY 10/03/18 RX: Vortioxetine Hydrobromide [Trintellix] 20 mg PO DAILY 10/03/18 Acetaminophen with Codeine [Acetaminophen-Cod #4 Tablet] 1 each PO QID #120 tablet 10/04/18 History of Present Illness History of Present Illness: JANIE KING is a 63 year old female, She came to the office for evaluation of left shoulder pain, chest pain, in the office she was evaluated on examination of the left shoulder, there was limitation of range of motion of the left shoulder suggesting a tear of the rotator cuff. A 12-lead EKG was obtained because of the chest pain, the EKG demonstrated normal sinus rhythm, there was Q wave in lead to be V3 V4 V2 because of the abnormal EKG, patient was admitted to the hospital for further evaluation. The cardiac enzymes were negative for acute CO.The MRI of the left shoulder demonstrated bulky AC joint hypertrophy there is tendinopathy with small fluid thickness tear of the anterior distal supraspinatus tendon Hospital Course Hospital Course: She was admitted for observation, evaluation of chest pain and left shoulder p ain 3 sets of cardiac enzymes negative for acute CO Physical Exam Vital Signs: Temp Pulse Resp BP Pulse Ox 97.2 F 76 16 137/66 H 95 10/04/18 16:11 10/04/18 16:11 10/04/18 16:11 10/04/18 16:11 10/04/18 16:11 Intake & Output 10/03/18 10/04/18 10/05/18 06:59 06:59 06:59 Weight 105 kg General appearance: PRESENT: no acute distress Eye exam: PRESENT: PERRLA Respiratory exam: PRESENT: clear to auscultation magalis Cardiovascular exam: PRESENT: +S1, +S2 GI/Abdominal exam: PRESENT: soft Neurological exam: PRESENT: alert, CN II-XII grossly intact Results Laboratory Results: 10/03/18 19:12 10/03/18 19:12 10/03/18 10/03/18 19:12 19:12 WBC 5.5 RBC 4.40 Hgb 14.3 Hct 40.9 MCV 93 MCH 32.5 MCHC 34.9 RDW 13.1 Plt Count 199 Seg Neutrophils % 49.4 Lymphocytes % 40.1 Monocytes % 8.3 Eosinophils % 1.2 Basophils % 1.0 Absolute Neutrophils 2.7 Absolute Lymphocytes 2.2 Absolute Monocytes 0.5 Absolute Eosinophils 0.1 Absolute Basophils 0.1 Sodium 142.5 Potassium 4.0 Chloride 108 H Carbon Dioxide 27 Anion Gap 8 BUN 20 Creatinine 0.73 Est GFR ( Amer) > 60 Est GFR (Non-Af Amer) > 60 Glucose 103 Calcium 9.8 Total Bilirubin 0.7 AST 20 ALT 25 Alkaline Phosphatase 71 Total Protein 7.5 Albumin 4.1 10/03/18 10/03/18 10/03/18 19:12 19:12 22:50 Creatine Kinase 56 CK-MB (CK-2) 0.30 0.25 Troponin I < 0.012 < 0.012 10/03/18 10/04/18 10/04/18 22:50 06:59 06:59 Creatine Kinase 45 40 CK-MB (CK-2) < 0.22 Troponin I < 0.012 10/04/18 10/04/18 14:36 14:36 Creatine Kinase 45 CK-MB (CK-2) < 0.22 Troponin I < 0.012 Impressions: Chest X-Ray 10/03/18 18:46 IMPRESSION: NO ACUTE RADIOGRAPHIC FINDING IN THE CHEST. Shoulder X-Ray 10/03/18 18:52 IMPRESSION: No acute fracture or malalignment Upper Extremity MRI 10/04/18 00:00 IMPRESSION: Tendinopathy with partial thickness tear anterior edge supraspinatus tendon Intra-articular long head biceps tendinopathy Qualifiers - * PATIENT BEING DISCHARGED WITH ANY OF THE FOLLOWING DIAGNOSIS: No
[2018-10-04] MEDS ORDERED: MONTELUKAST SODIUM 10 MG TABLET PO SCH (22:00)
== END 2018-10-04 17:02 | disposition home or self-care (01) ==
LOC: ER 17:24 → EH 20:44 → 5 10-04 07:56
PROVIDERS: ADMIT Internal Medicine; ATTEND Internal Medicine
DX: R07.9 Chest pain, unspecified (principal); R94.31 Abnormal electrocardiogram [ECG] [EKG]; M67.912 Unspecified disorder of synovium and tendon, left shoulder; I10 Essential (primary) hypertension; Z86.711 Personal history of pulmonary embolism; E66.9 Obesity, unspecified; K21.9 Gastro-esophageal reflux disease without esophagitis; M19.90 Unspecified osteoarthritis, unspecified site; F32.9 Major depressive disorder, single episode, unspecified; Z79.02 Long term (current) use of antithrombotics/antiplatelets; Z79.899 Other long term (current) drug therapy; Z88.6 Allergy status to analgesic agent
CPT/HCPCS: 93005; 99285; 36415 ×2; 82553 ×2; 82550 ×2; 85025; 80053; 84484 ×2; 73221; 71045; 73030; 93010; G0378 ×3; A9270 ×7; J2060; J3490